=== PATIENT | male | born 1970 | race Caucasian/White ===

== ENCOUNTER 2017-01-26 08:37 | Day surgery (SDC) | payer MEDICAID, OTHER ==
[2017-01-25 11:06] VITALS: BMI 29.0
[~2017-01-26] VITALS: Ht 167.6 cm; Wt 78.5 kg
[2017-01-26] VITALS (10 sets, daily range): BP systolic 133–150; BP diastolic 79–87; PULSE 70–80; RESP 11–18; Ht 167.6 cm; Wt 78.5 kg
[~2017-01-26 08:37] MED LIST: CEFAZOLIN 2 GM/50 ML (PMX) 50 ML IVPB SCH; SOD CHLORIDE 0.9% 1,000 ML IV SCH; [UNRECOGNIZED DRUG - OTHER] PO
[2017-01-26] MEDS ORDERED: PROP10TA6 PO (10:08)
[2017-01-26 10:31] LABS: BASOPHIL # 0.1 10^3/ul (0.0-0.1); BASOPHILS % 0.8 % (0.0-2.0); EOSINOPHILS # 0.4 10^3/ul (0.0-0.5); EOSINOPHILS % 5.1 % (0.0-7.0); HEMOGLOBIN 15.2 g/dl (14.0-18.0); LYMPHOCYTES # 2.1 10^3/ul (0.8-2.9); LYMPHOCYTES % 28.3 % (15.0-51.0); MEAN CORPUSCULAR HEMOGLOBIN 28.1 pg (29.0-33.0); MEAN CORPUSCULAR HGB CONC 35.3 g/dl (32.0-37.0); MEAN CORPUSCULAR VOLUME 79.6 fl (82.0-101.0); MEAN PLATELET VOLUME 10.1 fl (7.4-10.4); MONOCYTE # 0.5 10^3/ul (0.3-0.9); NEUTROPHIL # 4.2 10^3/ul (1.6-7.5); NEUTROPHILS % 57.7 % (39.0-77.0); PLATELET COUNT 243 10^3/UL (140-415); RED CELL DISTRIBUTION WIDTH 12.3 % (11.5-14.5); WHITE BLOOD COUNT 7.3 10^3/ul (4.8-10.8)
[2017-01-26] MEDS ORDERED: LIDOCAINE 2% (MDV) 20 ML INJ ONE (10:50)
[2017-01-26] MEDS ORDERED: BUPIVACAINE 0.5% (SDV) 30 ML INJ ONE (10:50)
[2017-01-26 11:00] LABS: INR 0.93; PROTIME 12.6 Sec (11.9-14.9)
[2017-01-26 11:01] LABS: PARTIAL THROMBOPLASTIN TIME 33.7 Sec (25.0-35.0)
[2017-01-26 11:02] LABS: ALBUMIN/GLOBULIN RATIO 1.17; BILIRUBIN,INDIRECT 1.3 mg/dl (0-1.1); BILIRUBIN,TOTAL 1.3 mg/dl (0.2-1.3); TOTAL PROTEIN 7.4 g/dl (6.1-8.1)
[2017-01-26 11:08] LABS: CREATININE 0.77 mg/dl (0.61-1.24); POTASSIUM 4.2 mmol/L (3.5-5.1)
[2017-01-26 11:09] LABS: CALCIUM 9.2 mg/dl (8.4-10.2)
[2017-01-26] MEDS ORDERED: CEFAZOLIN 1 GM INJ ONE (11:16)
[2017-01-26] MEDS ORDERED: ACETAMINOPHEN 325 MG TAB PO ONE (11:30)
--- NOTE | 2017-01-26 11:35 | OPR ---
Date/Time of Note Date/Time of Note DATE: 01/26/17 TIME: 11:29 Operative Report Procedure Date: Jan 26, 2017 Preoperative Diagnosis left arm mass Postoperative Diagnosis same Operation/Procedure Performed 1. excision of left arm mass 3 cm incision 3 cm x 2 cm mass 2. localized adjacent tissue transfer with the use of skin flaps 6 sq cm defect 3. therapeutic injection of subcutaneous local anesthesia Surgeon see signature line [employer] none Anesthesia Type: other (local ) Estimated Blood Loss: minimal Transfusion none Specimen left arm mass Grafts/Implants none Complications none Pt Condition Post Procedure: stable Indications This is a 38-year-old male with a left arm mass. He requests surgical excision. Risks alternatives benefits and percent were discussed the patient. Patient expresses understanding and consents to the operation. Procedure Description Patient taken to the OR and prepped and draped in usual sterile fashion. Surgical timeout was performed. IV antibiotics given. Therapeutic subcutaneous local anesthesia was injected throughout the mass site. A 15 blade the mass is excised. Dissection cautery was used to completely excise the mass and establish hemostasis. Due to large tissue defect localized adjacent tissue transfer with these of skin flaps were performed multilayer closure with interrupted 3-0 Vicryl running 4-0 Monocryl. Dermabond is applied dressings were applied. Rosa WATTS Jan 26, 2017 11:35
== END 2017-01-26 13:00 | disposition home or self-care (01) ==
LOC: SDS 08:37
PROVIDERS: ATTEND Surgery
DX: L72.0 Epidermal cyst (principal)
CPT/HCPCS: 14020; 80053; 85025; 85610; 85730; 88307; J0690; Z7512; Z7610

== ENCOUNTER 2017-02-04 10:17 | Emergency (ER) | payer OTHER ==
[~2017-02-04] VITALS: Wt 89.0 kg
[~2017-02-04 10:17] MED LIST changes: -CEFAZOLIN 2 GM/50 ML (PMX) 50 ML IVPB SCH; +PROP10TA6 PO; -SOD CHLORIDE 0.9% 1,000 ML IV SCH; -[UNRECOGNIZED DRUG - OTHER] PO
[2017-02-04] MEDS ORDERED: SULF1TAB31 PO (10:33)
--- NOTE | 2017-02-04 10:35 | ERD ---
ER Documentation Chief Complaint Chief Complaint POST OP LEFT ARM PAIN HPI 46-year-old male presents to the emergency department complaining of leakage from a left arm wound. Patient is approximately 1 week status post removal of the cyst. Recently, he began developing a purulent discharge from the left arm wound. Patient reports no fevers, chills, loss of function of the upper extremity. ROS All systems reviewed and are negative except as per history of present illness. Medications Home Meds Active Scripts Sulfamethoxazole/Trimethoprim* (Bactrim Ds* Tablet) 1 Each Tablet, 1 TAB PO BID , #14 TAB Prov:JUIDT RENDON 02/04/17 Reported Medications Propranolol Hcl* (Propranolol Hcl*) 10 Mg Tablet, 10 MG PO BID, TAB 01/26/17 Allergies Allergies: Coded Allergies: ibuprofen (Verified Allergy, Unknown, 01/26/17) PMhx/Soc History of Surgery: No Anesthesia Reaction: No Hx Neurological Disorder: No Hx Respiratory Disorders: No Hx Cardiac Disorders: No Hx Psychiatric Problems: No Hx Miscellaneous Medical Probl: No Hx Alcohol Use: No Hx Substance Use: No Hx Tobacco Use: No FmHx Noncontributory for chief complaint Physical Exam Vitals Vital Signs Date Time Temp Pulse Resp B/P Pulse Ox O2 Delivery O2 Flow Rate FiO2 02/04/17 10:21 98.0 89 18 129/78 99 Physical Exam General: well developed, well nourished, in no distress. Neuro: Normal speech, gait, balance Skin: On the left upper extremity, there is an operative wound from removal of the cyst. There is a small purulent discharge from the lateral aspect of the wound. There is no dehiscence at this time. No evidence of fluctuance or abscess. Patient's compartments are soft and compressible and there is no surrounding cellulitis. Extremity: Patient is full range of motion to flexion extension at the wrist and fingers. Results 24 hrs Current Medications Medications (Trade) Dose Ordered Sig/Keisha Route PRN Reason Start Time Stop Time Status Last Admin Dose Admin Bacitracin (Bacitracin Oint (Ud)) 1 applic ONCE ONCE TOP 02/04/17 11:00 02/04/17 11:01 Procedures/MDM Patient was taken to a room, seen and examined Medical decision making: Patient presents with what appears to be a wound infection. At this time, this wound does not need to be opened up as there is no obvious fluid collection on exam. Patient will be placed on antibiotics with precautionary instructions provided Departure Diagnosis: Primary Impression: Postoperative wound infection Condition: Stable Patient Instructions: Recognizing and Treating Wound Infection Referrals: Rosa WATTS Additional Instructions: Please see your surgeon in the next 3 days. Return for any increased problems or concerns JUDIT RENDON Feb 04, 2017 10:35
[2017-02-04] MEDS ORDERED: BACITRACIN 0.9 GM OINT TOP ONE (11:00)
== END 2017-02-04 11:05 | disposition home or self-care (01) ==
LOC: FTE 10:17
DX: T81.4XXA Infection following a procedure, initial encounter (principal); Y82.8 Other medical devices associated with adverse incidents
CPT/HCPCS: 99283

== ENCOUNTER 2017-08-16 10:01 | Emergency (ER) | END 2017-08-16 13:34 | disposition home or self-care (01) ==